=== PATIENT | female | born 2000 | race Caucasian/White ===

== ENCOUNTER 2021-10-13 15:12 | Emergency (ER) | payer OTHER, SELFPAY ==
[2021-10-13 15:14] VITALS: BP 123/74; PULSE 62; RESP 20; TEMP 36.4; O2SAT 100
[2021-10-13 15:35] LABS: Add Manual Diff / Slide Review NO; Basophils Absolute Auto 100 /uL (0-100); Basophils Percent Auto 1.5 % (0-2); Eosinophils Absolute Auto 100 /uL (0-450); Eosinophils Percent Auto 1.9 % (2-4); Hematocrit 39.4 % (36-46); Hemoglobin 13.4 g/dL (12.0-16.0); Lymphocytes Absolute Auto 2300 /uL (1100-4500); Lymphocytes Percent Auto 42.6 % (25-40); Mean Corpuscular HGB Conc 34.1 % (30-36); Monocytes Absolute Auto 500 /uL (0-900); Monocytes Percent Auto 9.6 % (3-14); Neutrophils Absolute Auto 2300 /uL (1500-7000); Neutrophils Percent Auto 44.4 % (50-75); Platelet Count 296 X10^3/uL (150-400); Red Blood Cell Count 4.33 X10^6/uL (4.0-5.2); White Blood Cell Count 5.3 X10^3/uL (4.5-11.0)
[2021-10-13 15:46] LABS: Alanine Aminotransferase 30 IU/L (<35); Albumin 4.4 g/dL (3.5-5.0); Albumin Globulin Ratio 1.3 (1.0-2.8); Alkaline Phosphatase 49 U/L (38-126); Aspartate Aminotransferase 37 IU/L (14-36); BUN Creatinine Ratio 8.2 (6-22); Bilirubin Total 0.6 mg/dL (0.2-1.3); Blood Urea Nitrogen 8 mg/dL (7-17); Carbon Dioxide 28 mmol/L (22-32); Chloride 107 mmol/L (98-107); Estimated Glomerular Filt Rate > 60 mL/min (>60); Globulin 3.4 g/dL (1.7-4.1); Glucose 72 mg/dL (70-100); HEMOLYSIS < 15 (0-50); Lipase 55 U/L (23-300); Potassium 3.7 mmol/L (3.4-5.1); Sodium 143 mmol/L (137-145); Total Protein 7.8 g/dL (6.3-8.2)
--- NOTE | 2021-10-13 19:15 | ED_ITS ---
HPI - Headache <TEX Jiang - Last Filed: 10/13/21 19:43> General Chief Complaint: Headache Stated Complaint: VISION CHANGES Time Seen by Provider: 10/13/21 19:15 Mode of arrival: Ambulatory History of Present Illness HPI Narrative: This is a 21-year-old female presents to the emergency department for vision changes and headache which she states started 1 week ago on Wednesday. She states that it started when she was walking, she had some blurring to her vision, she later did developed pain behind her eyes and a headache, she states that it has been 1 week of on and off headache with these vision changes. She states the bi lateral, denies any syncope, fever, is eye pain, mental status changes, weakness, congestion, URI symptoms, cough, or any other illness at all. She denies any dysuria or abdominal pain, back pain, or anything else. She went to [facility] a few days ago for evaluation, she was given a referral to Ophthalmology, states she called to make an appointment but they said her primary doctor need to send the referral. She states she cannot get in with her primary doctor for 1 more week. She states that she had a normal eye exam in April of 2021. Related Data Previous Rx's Medication Instructions Recorded ketorolac 10 mg tablet 10 mg PO Q8H #14 tab 10/13/21 ondansetron HCl 4 mg tablet 4 mg PO Q8H PRN 5 Days #10 tab 10/13/21 Allergies Allergy/AdvReac Type Severity Reaction Status Date / Time No Known Drug Allergies Allergy Verified 10/13/21 15:18 Review of Systems <TEX Jiang - Last Filed: 10/13/21 19:43> Review of Systems Narrative: General: denies fever, chills, malaise, sweats, fatigue Head/Neck: denies headache, neck pain, dizziness Eyes: Endorses visual changes, denies eye pain, patient states that currently she does not have any vision blurriness, no double vision, no field cut, she endorses sensation of ?vibrating eyes ? Cardio: denies chest pain, palpitations, edema Respiratory: denies dyspnea, cough, orthopnea GI: denies abdominal pain, nausea, vomiting, or diarrhea : denies dysuria, hematuria, urinary retention, frequency or incontinence MSK: denies joint pain, muscle weakness Skin: denies rash, itching, skin lesions or other Neuro: denies numbness, tingling Patient History <TEX Jiang - Last Filed: 10/13/21 19:43> Social History Smoking Status: Never smoker Smoking Status: Never smoker Exam <TEX Jiang - Last Filed: 10/13/21 19:43> Narrative Exam Narrative: Independently reviewed vitals signs and nursing notes. General: cooperative, comfortable, in no acute distress, well developed and well groomed Head: atraumatic, symmetrical facial expressions Neck: supple, atraumatic, without lymphadenopathy. Eyes: pupils equal round and reactive, EOMI, conjunctiva normal, no nystagmus, visual acuity is 2020 bilaterally and together. Nose: nares patent, no rhinorrhea Mouth/Throat: uvula midline, moist mucus membranes Cardiovascular: regular rate and rhythm, no peripheral edema, warm extremities Respiratory: normal effort, able to speak in complete sentences, no audible wheezing, stridor, or rales. No retractions or tachypnea. GI: abdomen soft, nontender to palpation, nondistended, no masses, no exquisite tenderness with exam, without guarding or rebound. MSK: moves all extremities, ambulatory w/steady gait, neurovascularly intact, no weakness Skin: brisk capillary refill, no rash, no erythema Neuro: normal speech and cognition, A&O x3, normal tone, cranial nerves 2-12 are grossly intact by exam, no neuro deficits Psych: mental status is grossly normal, congruent mood, normal affect, pleasant and cooperative Initial Vital Signs Initial Vital Signs: Vital Signs Temperature 97.5 F L 10/13/21 15:14 Pulse Rate 62 10/13/21 15:14 Respiratory Rate 20 10/13/21 15:14 Blood Pressure 123/74 10/13/21 15:14 Pulse Oximetry 100 10/13/21 15:14 <Ema Whitley DO - Last Filed: 10/14/21 19:42> Initial Vital Signs Initial Vital Signs: Vital Signs Temperature 97.5 F L 10/13/21 15:14 Pulse Rate 62 10/13/21 15:14 Respiratory Rate 20 10/13/21 15:14 Blood Pressure 123/74 10/13/21 15:14 Pulse Oximetry 100 10/13/21 15:14 Course <TEX Jiang - Last Filed: 10/13/21 19:43> Orders Ordered: Discontinued Medications Acetaminophen (Acetaminophen 325 Mg Tablet) 975 mg PO NOW ONE Stop: 10/13/21 19:26 Last Admin: 10/13/21 19:40 Dose: 975 mg Documented by: ROLF Dexamethasone (Dexamethasone 10 Mg/Ml Vial) 10 mg PO NOW ONE Stop: 10/13/21 19:26 Last Admin: 10/13/21 19:40 Dose: 10 mg Documented by: ROLF Diphenhydramine HCl (Diphenhydramine 25 Mg Tablet) 25 mg PO NOW ONE Stop: 10/13/21 19:26 Last Admin: 10/13/21 19:40 Dose: 25 mg Documented by: ROLF Ketorolac Tromethamine (Ketorolac 10 Mg Tablet) 10 mg PO NOW ONE Stop: 10/13/21 19:26 Last Admin: 10/13/21 19:40 Dose: 10 mg Documented by: ROLF Metoclopramide HCl (Metoclopramide Hcl 10 Mg Tablet) 10 mg PO NOW ONE Stop: 10/13/21 19:26 Last Admin: 10/13/21 19:50 Dose: 10 mg Documented by: ROLF Vital Signs Vital signs: Vital Signs - 8 hr 10/13/21 15:14 Temperature 97.5 F L Pulse Rate 62 Respiratory Rate 20 Blood Pressure 123/74 Pulse Oximetry 100 <Ema Whitley DO - Last Filed: 10/14/21 19:42> Orders Ordered: Discontinued Medications Acetaminophen (Acetaminophen 325 Mg Tablet) 975 mg PO NOW ONE Stop: 10/13/21 19:26 Last Admin: 10/13/21 19:40 Dose: 975 mg Documented by: ROLF Dexamethasone (Dexamethasone 10 Mg/Ml Vial) 10 mg PO NOW ONE Stop: 10/13/21 19:26 Last Admin: 10/13/21 19:40 Dose: 10 mg Documented by: ROLF Diphenhydramine HCl (Diphenhydramine 25 Mg Tablet) 25 mg PO NOW ONE Stop: 10/13/21 19:26 Last Admin: 10/13/21 19:40 Dose: 25 mg Documented by: ROLF Ketorolac Tromethamine (Ketorolac 10 Mg Tablet) 10 mg PO NOW ONE Stop: 10/13/21 19:26 Last Admin: 10/13/21 19:40 Dose: 10 mg Documented by: ROLF Metoclopramide HCl (Metoclopramide Hcl 10 Mg Tablet) 10 mg PO NOW ONE Stop: 10/13/21 19:26 Last Admin: 10/13/21 19:50 Dose: 10 mg Documented by: ROLF Vital Signs Vital signs: Vital Signs - 8 hr 10/13/21 15:14 Temperature 97.5 F L Pulse Rate 62 Respiratory Rate 20 Blood Pressure 123/74 Pulse Oximetry 100 MDM - Headache <TEX Jiang - Last Filed: 10/13/21 19:43> Lab Data Result diagrams: 10/13/21 15:25 10/13/21 15:25 Labs: Lab Results 10/13/21 10/13/21 Range/Units 15:25 15:25 WBC 5.3 (4.5-11.0) X10^3/uL RBC 4.33 (4.0-5.2) X10^6/uL Hgb 13.4 (12.0-16.0) g/dL Hct 39.4 (36-46) % MCV 91.0 (80-100) fL MCH 31.0 (26-34) PG MCHC 34.1 (30-36) % RDW 12.0 (11.6-14.8) % Plt Count 296 (150-400) X10^3/uL Neut % (Auto) 44.4 L (50-75) % Lymph % (Auto) 42.6 H (25-40) % [place] % (Auto) 9.6 (3-14) % Eos % (Auto) 1.9 L (2-4) % Baso % (Auto) 1.5 (0-2) % Neut # (Auto) 2300 (9727-3352) /uL Lymph # (Auto) 2300 (4451-9215) /uL [place] # (Auto) 500 (0-900) /uL Eos # (Auto) 100 (0-450) /uL Baso # (Auto) 100 (0-100) /uL Sodium 143 (137-145) mmol/L Potassium 3.7 (3.4-5.1) mmol/L Chloride 107 (98-107) mmol/L Carbon Dioxide 28 (22-32) mmol/L BUN 8 (7-17) mg/dL Creatinine 0.98 (0.52-1.04) mg/dL Estimated GFR > 60 (>60) mL/min BUN/Creatinine Ratio 8.2 (6-22) Glucose 72 (70-100) mg/dL Calcium 9.0 (8.4-10.2) mg/dL Total Bilirubin 0.6 (0.2-1.3) mg/dL AST 37 H (14-36) IU/L ALT 30 (<35) IU/L Alkaline Phosphatase 49 (38-126) U/L Total Protein 7.8 (6.3-8.2) g/dL Albumin 4.4 (3.5-5.0) g/dL Globulin 3.4 (1.7-4.1) g/dL Albumin/Globulin Ratio 1.3 (1.0-2.8) Lipase 55 (23-300) U/L Point of Care Testing Test Results Negative Urine Dip Bedside Urine Glucose Negative Bedside Urine Bilirubin - Negative Bedside Urine Ketone - Negative Urine Specific [place] 1.010 Bedside Urine Occult Blood - Negative Bedside Urine pH 6.5 Bedside Urine Protein - Negative Bedside Urine Urobilinogen - Negative Bedside Urine Nitrite - Negative Bedside Urine Leukocytes - Negative Esterase MDM Narrative Medical decision making narrative: This is a 21-year-old female presents emergency department for vision changes associated with the headache which has been ongoing for 1 week. She was seen by [facility], given referral for Ophthalmology, states try to follow-up but was unable to because they need a referral from a primary doctor. Her primary doctor cannot see her for 1 week. She has been afebrile, without any other symptoms, no balance changes or weakness, without any URI symptoms. This is most likely an ongoing migraine, patient states she has not had this in the past. Today she was treated with Benadryl, Tylenol, dexamethasone, Reglan, and p.o. Toradol and encouraged to hydrate at home and rest. Patient was given strict return precautions, encouraged to treat her headache with Tylenol, ibuprofen, and Benadryl as needed at home, she was given a prescription of Zofran so that she can use this as needed for her nausea. Patient's primary care provider is VASILE Weaver, she will follow-up with her next week. Headache considerations include, but not limited to: Subarachnoid hemorrhage, but unlikely as patient denies sudden onset of pain, not worst of life, or neck pain Meningitis considered, but thought unlikely given lack of Brudzinski's, Kernig's sign, altered mental status or fever Giant cell arteritis considered, but thought unlikely given lack of unilateral findings, pain in buddhism, vision change HTN Emergency considered, but thought unlikely given normal vitals Other serious diagnoses considered unlikely given lack of red flag findings such as sudden onset, increasing frequency, immunocompromise, systemic signs (fever, chills, stiff neck, or rash), focal neurologic findings, trauma, blood thinners, etc. Patient is appropriate and amenable to discharge home. Vital signs are stable on repeat examination is unremarkable. Patient has been informed of results. Patient has been given strict return to ER precautions for any new or worsening symptoms. Patient understands to follow up closely with outpatient providers as instructed. Patient understands plan and agrees to discharge home. All questions and concerns answered at this time. <Ema Whitley, DO - Last Filed: 10/14/21 19:42> Lab Data Labs: Lab Results 10/13/21 10/13/21 Range/Units 15:25 15:25 WBC 5.3 (4.5-11.0) X10^3/uL RBC 4.33 (4.0-5.2) X10^6/uL Hgb 13.4 (12.0-16.0) g/dL Hct 39.4 (36-46) % MCV 91.0 (80-100) fL MCH 31.0 (26-34) PG MCHC 34.1 (30-36) % RDW 12.0 (11.6-14.8) % Plt Count 296 (150-400) X10^3/uL Neut % (Auto) 44.4 L (50-75) % Lymph % (Auto) 42.6 H (25-40) % [place] % (Auto) 9.6 (3-14) % Eos % (Auto) 1.9 L (2-4) % Baso % (Auto) 1.5 (0-2) % Neut # (Auto) 2300 (1513-2620) /uL Lymph # (Auto) 2300 (7924-8163) /uL [place] # (Auto) 500 (0-900) /uL Eos # (Auto) 100 (0-450) /uL Baso # (Auto) 100 (0-100) /uL Sodium 143 (137-145) mmol/L Potassium 3.7 (3.4-5.1) mmol/L Chloride 107 (98-107) mmol/L Carbon Dioxide 28 (22-32) mmol/L BUN 8 (7-17) mg/dL Creatinine 0.98 (0.52-1.04) mg/dL Estimated GFR > 60 (>60) mL/min BUN/Creatinine Ratio 8.2 (6-22) Glucose 72 (70-100) mg/dL Calcium 9.0 (8.4-10.2) mg/dL Total Bilirubin 0.6 (0.2-1.3) mg/dL AST 37 H (14-36) IU/L ALT 30 (<35) IU/L Alkaline Phosphatase 49 (38-126) U/L Total Protein 7.8 (6.3-8.2) g/dL Albumin 4.4 (3.5-5.0) g/dL Globulin 3.4 (1.7-4.1) g/dL Albumin/Globulin Ratio 1.3 (1.0-2.8) Lipase 55 (23-300) U/L Point of Care Testing Test Results Negative Urine Dip Bedside Urine Glucose Negative Bedside Urine Bilirubin - Negative Bedside Urine Ketone - Negative Urine Specific [place] 1.010 Bedside Urine Occult Blood - Negative Bedside Urine pH 6.5 Bedside Urine Protein - Negative Bedside Urine Urobilinogen - Negative Bedside Urine Nitrite - Negative Bedside Urine Leukocytes - Negative Esterase Discharge Plan Departure Patient Disposition: Home Clinical Impression: Vision changes Headache Qualifiers: Headache type: other headache syndrome Qualified Code(s): G44.89 - Other headache syndrome Instructions: Migraine -- Adult, DI for Hormonal and Tension Headaches Activity Restrictions/Additional Instructions: *You have been diagnosed with vision changes likely due to a migraine, this could be a tension type hormonal type, ocular migraine, there are many different kinds. Please focus on hydration, try prevent this from worsening by taking medication and avoiding worsening of this by resting. Usually when the brain hurts, it needs rest-from all types of stimulation. Please get some good sleep tonight, drink plenty of water before bed, try to take ibuprofen and Tylenol first thing in the morning to prevent this from getting worse, can take the Reglan as well and see how goes. If it gets bad, take a Benadryl, and maybe you need to go home from work. Please follow-up with Dr. Polk from Ophthalmology for an exam if he needed. May go to an logistics planning engineer as well to evaluate your vision. You could need corrective lenses and maybe this is what is causing her symptoms. Likely talked about, this could be a viral illness but you do not have any of the other symptoms going along with that. If you start vomiting, feel weakness on one side, vision goes black, feels sharp eye pain, please return to the emergency department for another exam. At this point this does not seem dangerous, and I recommend supportive care at home and following up with her primary care provider if this is ongoing. There is prevention medication for these things if this is ongoing. *What to do: *Please continue to take your regular medications as directed. [ x] New medication prescriptions sent to your pharmacy: [[facility] ] [ ] New medication written as a paper prescription [ ] No new medications given *Please follow up with your primary care provider in 2-3 days, call for an appointment. Let them know you were seen in the Emergency Department and that we asked that you be seen for follow-up. We will electronically transmit a record of today's note if your PCP is in our system *If you do not have a primary care provider please contact [phone] to establish care with one of the [facility] primary care providers. *Return to Emergency Department if you should have any new, worsening or concerning symptoms, such as [fever greater than 101F, chills, worsening pain, persistent vomiting or other bothersome symptoms] Prescriptions: New ketorolac 10 mg tablet 10 mg PO Q8H Qty: 14 0RF Rx Instructions: take with food and water ondansetron HCl 4 mg tablet 4 mg PO Q8H PRN (Reason: nausea and vomiting) 5 Days Qty: 10 0RF Referrals: Joi Polk MD [Physician] - Jyotsna Weaver PA-C [Non-Staff] - <Ema Whitley DO - Last Filed: 10/14/21 19:42> Cosign ED Attending Cosignature Attestation: I was immediately available in the department for consultation. Documentation has been reviewed.
[2021-10-13] MEDS: diphenhydrAMINE 25 MG TABLET PO (19:40)
[2021-10-13] MEDS: ACETAMINOPHEN 325 MG TABLET 975 MG PO (19:40)
[2021-10-13] MEDS: DEXAMETHASONE 10 MG/ML VIAL PO (19:40)
[2021-10-13] MEDS: KETOROLAC 10 MG TABLET PO (19:40)
[2021-10-13] MEDS: METOCLOPRAMIDE HCL 10 MG TABLET PO (19:50)
[2021-10-13 20:01] VITALS: BP 122/78; PULSE 78; RESP 16; O2SAT 99
== END 2021-10-13 20:03 | disposition home or self-care (01) ==
PROVIDERS: Emergency Medicine; Emergency Provider Nurse Practitioner Critical Care Medicine
DX: G44.89 Other headache syndrome (principal)
CPT/HCPCS: 80053; 81003; 81025; 83690; 85025; 99283; J1100

== ENCOUNTER 2023-10-20 16:44 | Emergency (ER) | payer OTHER, SELFPAY ==
[2023-10-20 16:49] VITALS: BP 118/64; PULSE 65; RESP 16; TEMP 37.2; O2SAT 100; BMI 21.6
--- NOTE | 2023-10-20 17:23 | ED_ITS ---
HPI - Back Pain/Injury <Hoang Jacobs PA-C - Last Filed: 10/20/23 17:37> General Chief Complaint: Back Pain/Injury Stated Complaint: sharp back pain, going down rt leg Time Seen by Provider: 10/20/23 17:23 Source: patient History of Present Illness HPI Narrative: This is a 23-year-old female presenting to the emergency department due to acute onset lower back pain. States she was she was bending over in the shower shaving legs when she felt a sharp pain began in her lower back radiating upper back as well as down her leg. She states this is the pain has somewhat improved. Denies any urinary or bowel incontinence or saddle paresthesias or acute leg weakness. Related Data Previous Rx's Medication Instructions Recorded ketorolac 10 mg tablet 10 mg PO Q8H headache #14 tabs 10/13/21 cyclobenzaprine 10 mg tablet 10 mg PO TID PRN muscle spasm #30 10/20/23 tabs methylprednisolone 4 mg tablets in See Rx Instructions PO .COMPLEX 10/20/23 a dose pack (Medrol (Pro)) #21 ea Allergies Allergy/AdvReac Type Severity Reaction Status Date / Time No Known Drug Allergies Allergy Verified 10/13/21 15:18 Review of Systems <Hoang Jacobs PA-C - Last Filed: 10/20/23 17:37> Review of Systems Narrative: GENERAL: Denies chills, fatigue, malaise, fever, sweats. HEENT: Denies sinus pain, ear pain, sore throat, difficulty swallowing, dizziness. RESPIRATORY: Denies dyspnea, cough, wheezing, hemoptysis, sputum. CARDIOVASCULAR: Denies chest pain, palpitations, orthopnea, edema, GASTROINTESTINAL: Denies nausea, vomiting, abdominal pain, diarrhea, constipation, melena. : Denies dysuria, frequency, incontinence, hematuria, urinary retention. MUSCULOSKELETAL: Reports lower back pain SKIN: Denies rash, skin lesions, or other NEUROLOGIC: Denies weakness, headache, numbness, change in speech, confusion, seizures, incoordination. PSYCHIATRIC: No concerning psychosocial issues. 12 point review of systems is negative except for those stated above Patient History <Hoang Jacobs PA-C - Last Filed: 10/20/23 17:37> Social History Smoking Status: Never smoker Smoking Status: Never smoker alcohol intake frequency: a few times a month Substance Use Type: does not use Exam <Hoang Jacobs PA-C - Last Filed: 10/20/23 17:37> Narrative Exam Narrative: GENERAL: Well-developed patient, in mild distress. HEAD: Atraumatic. Normocephalic. EYES: Pupils equal round and reactive. Extraocular motions intact. No scleral icterus. No injection or drainage. ENT: Nose without bleeding, purulent drainage. Throat without erythema, tonsillar hypertrophy or exudate. Airway patent. NECK: Trachea midline. Non tender EXTREMITIES: No edema or joint tenderness. NEURO: AOx3. SKIN: No rash or erythema of visible areas Back: Mild tenderness to palpation to the lumbar paraspinals Initial Vital Signs Initial Vital Signs: Vital Signs Temperature 99.0 F 10/20/23 16:49 Pulse Rate 65 10/20/23 16:49 Respiratory Rate 16 10/20/23 16:49 Blood Pressure 118/64 10/20/23 16:49 Pulse Oximetry 100 10/20/23 16:49 Oxygen Delivery Method Room Air 10/20/23 16:49 <Wandy Woodard MD - Last Filed: 10/20/23 18:45> Initial Vital Signs Initial Vital Signs: Vital Signs Temperature 99.0 F 10/20/23 16:49 Pulse Rate 65 10/20/23 16:49 Respiratory Rate 16 10/20/23 16:49 Blood Pressure 118/64 10/20/23 16:49 Pulse Oximetry 100 10/20/23 16:49 Oxygen Delivery Method Room Air 10/20/23 16:49 Course <Hoang Jacobs PA-C - Last Filed: 10/20/23 17:37> Orders Ordered: Discontinued Medications Ketorolac Tromethamine (Ketorolac 30 Mg/Ml Vial) 15 mg IM NOW ONE Stop: 10/20/23 17:31 Last Admin: 10/20/23 17:40 Dose: 15 mg Documented By: ZRANI Vital Signs Vital signs: Vital Signs - 8 hr 10/20/23 16:49 10/20/23 18:02 Temperature 99.0 F Pulse Rate 65 80 Respiratory Rate 16 14 Blood Pressure 118/64 118/67 Pulse Oximetry 100 99 Oxygen Delivery Method Room Air Room Air <Wandy Woodard MD - Last Filed: 10/20/23 18:45> Orders Ordered: Discontinued Medications Ketorolac Tromethamine (Ketorolac 30 Mg/Ml Vial) 15 mg IM NOW ONE Stop: 10/20/23 17:31 Last Admin: 10/20/23 17:40 Dose: 15 mg Documented By: ROBERTO Vital Signs Vital signs: Vital Signs - 8 hr 10/20/23 16:49 10/20/23 18:02 Temperature 99.0 F Pulse Rate 65 80 Respiratory Rate 16 14 Blood Pressure 118/64 118/67 Pulse Oximetry 100 99 Oxygen Delivery Method Room Air Room Air MDM - Back Pain/Injury <Hoang Jacobs PA-C - Last Filed: 10/20/23 17:37> MDM Narrative Medical decision making narrative: ED course: This is a 23-year-old female presents emergency department due to suspected lumbosacral strain. No red flag symptoms such as saddle paresthesias or urinary or bowel incontinence or lower extremity weakness. We will treat with IM Toradol, muscle relaxants as well as a short Medrol Dosepak. No past medical history and low suspicion for any kind of acute vertebral fracture. CC: Lower back pain Complicating co-morbidities: None Data collected from: Previous notes Medical records reviewed: Patient was last seen here about 2 years ago due to headache with vision changes. No pertinent medical history. Patient was given pain medications eventually discharged. Differential considered, but not limited to: Lumbosacral strain, spinal cord injury, vertebral fracture Exam documented above, pertinent findings include: Lumbar paraspinal tenderness to palpation Lab Test results independently reviewed as above. Pertinent findings: None obtained Imaging studies independently reviewed: None obtained Scores Used: None MIPS Elements: None Consultations: None Treatments: IM Toradol Re-evaluations: None Discussion: Discussed plan with the patient was comfortable with the plan Diagnosis: Lumbosacral strain Disposition: see below, along with detailed discharge instructions that have been reviewed with patient as well as indications for ED re-evaluation and additional outpatient follow up Discharge Plan Departure Patient Disposition: Home Clinical Impression: Strain of lumbar region Instructions: DI for Back Strain or Sprain Activity Restrictions/Additional Instructions: Thank you for coming to the [facility] Emergency Department today. I suspect you have strained the muscles in her lumbar spine. These should improve with rest, the IM Toradol give me today, muscle relaxants, as well as the steroids. Please continue to attempt to light movement to help ?loosened up? the muscles. I do recommend you follow up with the primary care provider to discuss possible advanced imaging. Please return to the emergency department if you develop any numbness between your legs, urinary or bowel incontinence, or any other concerning signs or symptoms. I hope you feel better soon. Please follow up with your primary care provider within a week if your symptoms continue. If you do not have a primary care provider please contact the [facility] Resource line at [phone]. They will ask some questions about your medical history and help you get set up with a provider in the community. Prescriptions: New methylprednisolone [Medrol (Pro)] 4 mg tablets,dose pack See Rx Instructions .ROUTE .COMPLEX Qty: 21 0RF Rx Instructions: orally per package directions cyclobenzaprine 10 mg tablet 10 mg PO TID PRN (Reason: muscle spasm) Qty: 30 0RF No Action ketorolac 10 mg tablet 10 mg PO Q8H Qty: 14 0RF Rx Instructions: take with food and water Referrals: Jyotsna Weaver PA-C [Primary Care Provider] - Stand Alone Forms: Patient Portal/API ED Sign-out <Wandy Woodard MD - Last Filed: 10/20/23 18:45> Cosign ED Attending Mark Attestation: I was immediately available in the department for consultation throughout this patient's visit. Wandy Woodard MD
[2023-10-20] MEDS: KETOROLAC 30 MG/ML VIAL 15 MG IM (17:40)
[2023-10-20 18:02] VITALS: BP 118/67; PULSE 80; RESP 14; O2SAT 99
== END 2023-10-20 18:04 | disposition home or self-care (01) ==
PROVIDERS: Emergency Provider Physician Assistant Medical; PCP Physician Assistant
DX: S39.012A Strain of muscle, fascia and tendon of lower back, initial encounter (principal); X50.1XXA Overexertion from prolonged static or awkward postures, initial encounter
CPT/HCPCS: 96372; 99283; J1885